=== PATIENT | female | born 1955 | race Two or more races ===

== ENCOUNTER 2022-03-13 11:18 | Emergency (ER) | payer MEDICARE, OTHER ==
[~2022-03-13] VITALS: Ht 157.5 cm; Wt 60.3 kg
[2022-03-13] MEDS ORDERED: HYDROCODONE/APAP 10-325 MG TABLET ONE (11:40)
[2022-03-13] MEDS ORDERED: ONDANSETRON ODT 4 MG TAB.RAPDIS ONE (11:40)
--- NOTE | 2022-03-13 11:43 | NUR ---
Patient taken to CT.
[2022-03-13] MEDS ORDERED: HYDROCODONE/APAP 10-325 MG TABLET PO ONE (11:45)
[2022-03-13] MEDS ORDERED: ONDANSETRON ODT 4 MG TAB.RAPDIS SL ONE (11:45)
--- NOTE | 2022-03-13 12:01 | NUR ---
Patient back from CT.
[2022-03-13] MEDS ORDERED: TRAM50TA2 PO (14:14)
--- NOTE | 2022-03-13 14:28 | NUR ---
1341pm: Upkeep Worker assumes care, 1st contact with patient, she is AOx4, resting comfortably on gurney, pending CT knee results. Leoncio wrap is on her left knee with CMS intact. Left shoulder immobilizer is on with CMS intact. Patient said that her daughter is coming to our ER to give her a ride home. checked the shoulder immobilizer placement. 1428pm: Patient is discharged to home. Written and verbal after care instructions given. Patient verbalized understanding and compliance of instructions. Stressed follow up with primary doctor and orthopedic doctor or return to ER for worsening s/s. Patient is wating for her family at this time.
--- NOTE | 2022-03-13 14:56 | NUR ---
Patient left ER in stable condition via wheelchair. All belongings left with patient. Patient's family verbalized understanding of disharge instructions as well.
== END 2022-03-13 14:58 | disposition home or self-care (01) ==
LOC: ER 11:18
DX: S80.02XA Contusion of left knee, initial encounter (principal); S42.202A Unspecified fracture of upper end of left humerus, initial encounter for closed fracture; W19.XXXA Unspecified fall, initial encounter; Y92.89 Other specified places as the place of occurrence of the external cause; S09.8XXA Other specified injuries of head, initial encounter; S01.21XA Laceration without foreign body of nose, initial encounter; W45.8XXA Other foreign body or object entering through skin, initial encounter; E11.9 Type 2 diabetes mellitus without complications; I10 Essential (primary) hypertension; Z88.5 Allergy status to narcotic agent
CPT/HCPCS: 70450; 72125; 73030; 73060; 73700; A4663; Q0162

== ENCOUNTER 2022-09-14 21:29 | Emergency (ER) | payer MEDICARE, OTHER ==
[~2022-09-14] VITALS: Ht 154.9 cm; Wt 62.6 kg
[~2022-09-14 21:29] MED LIST: TRAM50TA2 PO
--- NOTE | 2022-09-14 21:40 | NUR ---
Patient walked to ER c/o hypertension, RT foot pain, RYAN, N/V that started around 1800. BP upon arrival 186/98. Patient is a/ox4
--- NOTE | 2022-09-14 21:52 | NUR ---
Dr. Charanjit Manzanares at bedside for MSE.
[2022-09-14] MEDS ORDERED: diphenhydrAMINE 50 MG/1 ML VIAL IV ONE (22:00)
[2022-09-14] MEDS ORDERED: IV NORMAL SALINE 1000 ML BAG IV ONE (22:00)
[2022-09-14] MEDS ORDERED: PROCHLORPERAZINE EDISYLATE 10 MG/2 ML VIAL IV ONE (22:00)
[2022-09-14] MEDS ORDERED: diphenhydrAMINE 50 MG/1 ML VIAL ONE (22:03)
[2022-09-14] MEDS ORDERED: PROCHLORPERAZINE EDISYLATE 10 MG/2 ML VIAL ONE (22:04)
[2022-09-14 22:08] LABS: HEMATOCRIT 36.6 % (31.2-41.9); MEAN CORPUSCULAR HEMOGLOBIN 32.6 uug (24.7-32.8); MEAN CORPUSCULAR VOLUME 97.1 fL (75.5-95.3); PLATELET COUNT (AUTO) 105 K/uL (179-408)
[2022-09-14 22:18] LABS: CARBON DIOXIDE 28 mmol/L (21-32); CHLORIDE 103 mmol/L (98-107); CREATININE 1.1 mg/dL (0.6-1.3); GLUCOSE 210 mg/dL (74-106); POTASSIUM 4.7 mmol/L (3.5-5.1); UREA NITROGEN, BLOOD 39 mg/dL (7-18)
[2022-09-14 22:28] LABS: ALANINE AMINOTRANSFERASE 48 U/L (14-59); ALKALINE PHOSPHATASE 172 U/L (50-136); ASPARTATE AMINOTRANSFERASE 21 U/L (15-37); BILIRUBIN,DIRECT 0.1 mg/dL (0.0-0.2); BILIRUBIN,TOTAL 0.3 mg/dL (0.2-1.0); TOTAL PROTEIN, SERUM 7.9 g/dL (6.4-8.2)
--- NOTE | 2022-09-14 22:50 | NUR ---
Back from CT.
--- NOTE | 2022-09-14 23:03 | NUR ---
Dr Charanjit Manzanares notified of latest BP 197/98.
[2022-09-14] MEDS ORDERED: LABETALOL HCL 100 MG/20 ML VIAL ONE (23:06)
[2022-09-14] MEDS ORDERED: LABETALOL HCL 100 MG/20 ML VIAL IV ONE (23:15)
[2022-09-14] MEDS ORDERED: METF-442 PO (23:26)
[2022-09-14] MEDS ORDERED: HYDR12.55 PO (23:26)
[2022-09-14] MEDS ORDERED: BENA20TA9 PO (23:26)
--- NOTE | 2022-09-14 23:44 | NUR ---
called 3rd floor for bed, patient assigned to TELE room 302
--- NOTE | 2022-09-15 00:23 | NUR ---
Dr. Charanjit Manzanares at bedside.
--- NOTE | 2022-09-15 00:52 | NUR ---
Patient does not wish to proceed with medical care recommended by Dr. Donohue. Patient given information related to possible complications, up to and including , which could occur as a result of leaving the hospital at this time. Patient verbalizes understanding of risks involved due to leaving against medical advice. Patient has signed AMA form.
--- NOTE | 2022-09-15 00:59 | NUR ---
Patient is a/ox4, NAD noted. patient ambulated with steady gait, accompanied by relatives
--- NOTE | 2022-09-15 00:59 | NUR ---
IV removed. Catheter intact and site benign. Pressure and 4x4 gauze applied to site. No bleeding noted.
[2022-09-15 01:00] VITALS: BP 174/78
== END 2022-09-15 01:01 | disposition left against medical advice (07) ==
LOC: ER 21:30
DX: I16.0 Hypertensive urgency (principal); R42 Dizziness and giddiness; R51.9 Headache, unspecified; R06.02 Shortness of breath; R07.89 Other chest pain; M79.671 Pain in right foot; E11.9 Type 2 diabetes mellitus without complications; Z88.5 Allergy status to narcotic agent; Z79.899 Other long term (current) drug therapy; Z20.822 Contact with and (suspected) exposure to COVID-19
CPT/HCPCS: 99285; 96374; 70450; 71045; 96375; 96361; 87426; 80076; 80048; 85025; 84484 ×2; 36415; 93005 ×2; 73630; J1200; J3490; J0780; J7040; A4663